=== PATIENT | female | born 1955 | race American Indian/Alaskan Native ===

== ENCOUNTER 2022-02-01 20:29 | Inpatient (IN) | payer MEDICARE ==
[2022-02-01] MEDS ORDERED: ALBUTEROL 2.5 MG/3 ML NEBU IH ONE (20:45)
[2022-02-01] MEDS ORDERED: IPRATROPIUM 0.02% NEBU 2.5 ML IH ONE (20:45)
--- NOTE | 2022-02-01 21:10 | XRay Report ---
CHEST 1 VIEW 02/01/2022 8:50 PM INDICATION / CLINICAL INFORMATION: Dyspnea. COMPARISON: 08/23/12 FINDINGS: SUPPORT DEVICES: None. HEART / MEDIASTINUM: Heart is moderately enlarged but unchanged. LUNGS / PLEURA: Moderate airspace disease in the right middle to lower lung with patchy airspace dise ase in the left lung base. No significant pleural effusion. No pneumothorax. ADDITIONAL FINDINGS: No significant additional findings. IMPRESSION: 1. Bilateral pulmonary opacities, right greater than left, which could represent pneumonia. Signer Name: Tim Garcia MD Signed: 02/01/2022 9:06 PM Workstation Name: [id number]
[2022-02-01] MEDS: cefTRIAXone/NS 1 GM/50 ML 1 GM/50 ML BAG IV ONE (21:29)
[2022-02-01 21:51] LABS: Creatine Kinase MB 2.7 ng/mL (0.0-4.0)
[2022-02-01 22:11] LABS: INR 0.96 (0.87-1.13)
[2022-02-01 22:15] LABS: Alanine Aminotransferase 18 units/L (7-56); Albumin 3.8 g/dL (3.9-5); BUN/Creatinine Ratio 10; Blood Urea Nitrogen 10 mg/dL (7-17); Hemolysis Index 14
[2022-02-01 22:18] LABS: Basophils # (Auto) 0.1 K/mm3 (0.0-0.1); Basophils % (Auto) 0.6 % (0.0-1.8); Eosinophils % (Auto) 0.3 % (0.0-4.3); Hematocrit 46.1 % (30.3-42.9); Hemoglobin 15.1 gm/dl (10.1-14.3); Lymphocytes # (Auto) 0.9 K/mm3 (1.2-5.4); Lymphocytes % (Auto) 8.2 % (13.4-35.0); Mean Corpuscular HGB Conc 33 % (30-34); Mean Corpuscular Volume 92 fl (79-97); Monocytes # (Auto) 0.4 K/mm3 (0.0-0.8); Monocytes % (Auto) 3.5 % (0.0-7.3); Platelet Count 302 K/mm3 (140-440); Red Blood Count 5.03 M/mm3 (3.65-5.03); Red Cell Distribution Width 13.7 % (13.2-15.2)
[2022-02-01 22:25] LABS: ABG HCO3 22.4 mmol/L (20.0-26.0); ABG Methemoglobin 0.7 % (0.0-1.5); ABG Oxygen Saturation 93.4 % (95.0-99.0); ABG PCO2 37.1 mm Hg; ABG PH 7.398 pH Units (7.350-7.450); ABG PO2 63.5 mm Hg (80.0-90.0)
[2022-02-01] MEDS: FUROSEMIDE 40 MG/4 ML INJ IV ONE (22:43)
[2022-02-01] MEDS: INSULIN REGULAR, HUMAN 100 UNITS/1 ML IV ONE (23:23)
--- NOTE | 2022-02-01 23:36 | Emergency Department Report ---
ED Shortness of Breath HPI - General Chief Complaint: Dyspnea/Respdistress Stated Complaint: SHORTNESS OF BREATH Time Seen by Provider: 02/01/22 20:45 Source: EMS Mode of arrival: Stretcher Limitations: No Limitations - History of Present Illness Initial Comments: SOB x1-2 hours, EMS gave 125mg of solu-medrol enroute pt is HTN diabetic started having sob TODAY , REMOTE HISTORY OF SMOKIING , NO CHF OR COPD, HAD HER 2 COVID SHOTS AND AWITING HE BOOSTER IN FEBRUARY Complaint: shortness of breath -: hour(s) Pain Scale: 0 Improves With: oxygen Worsens With: nothing - Related Data Home Oxygen Therapy: Yes Allergies Allergy/AdvReac Type Severity Reaction Status Date / Time Penicillins Allergy Hives Verified 02/01/22 21:13 ED Review of Systems ROS: Stated complaint: SHORTNESS OF BREATH Other details as noted in HPI Constitutional: denies: chills, fever Eyes: denies: eye pain, eye discharge, vision change ENT: denies: ear pain, throat pain Respiratory: denies: cough, shortness of breath, wheezing Cardiovascular: denies: chest pain, palpitations Endocrine: no symptoms reported Gastrointestinal: denies: abdominal pain, nausea, diarrhea Genitourinary: denies: urgency, dysuria, discharge Musculoskeletal: denies: back pain, joint swelling, arthralgia Skin: denies: rash, lesions Neurological: denies: headache, weakness, paresthesias Psychiatric: denies: anxiety, depression Hematological/Lymphatic: denies: easy bleeding, easy bruising ED Past Medical Hx - Past Medical History Previous Medical History?: No Hx Hypertension: Yes Hx Diabetes: Yes ED Physical Exam - General Limitations: No Limitations General appearance: alert, in distress - Head Head exam: Present: atraumatic, normocephalic - Eye Eye exam: Present: normal appearance - ENT ENT exam: Present: mucous membranes moist - Neck Neck exam: Present: normal inspection - Respiratory Respiratory exam: Present: rales, rhonchi. Absent: respiratory distress - Cardiovascular Cardiovascular Exam: Present: normal rhythm, tachycardia. Absent: systolic murmur, diastolic murmur, rubs, gallop - GI/Abdominal GI/Abdominal exam: Present: soft, normal bowel sounds - Extremities Exam Extremities exam: Present: normal inspection - Back Exam Back exam: Present: normal inspection - Neurological Exam Neurological exam: Present: alert, oriented X3 - Psychiatric Psychiatric exam: Present: normal affect, normal mood - Skin Skin exam: Present: warm, dry, intact, normal color. Absent: rash ED Course Vital Signs 02/01/22 02/01/22 21:25 21:42 Temperature 98.9 F Pulse Rate 135 H Pulse Rate [ 137 H Bilateral] Respiratory 25 H Rate Respiratory 30 H Rate [Bilateral ] Blood Pressure 112/83 [Left] O2 Sat by Pulse 100 Oximetry ED Medical Decision Making - Lab Data Result diagrams: 02/01/22 21:22 02/01/22 21:22 - EKG Data -: EKG Interpreted by Me EKG shows normal: sinus rhythm Rate: tachycardia - Radiology Data Radiology results: report reviewed, image reviewed - Medical Decision Making PLACEDON FACE MASK, RT GIVEN STERIODS , WORK UP SHWOD ELEVATED LACTIC AND BNP, ABX CULTURES LACTIC ACID DONE , PASSIX GIVEN , WILL GET cta TO RULE OUT PTE Critical care attestation.: If time is entered above; I have spent that time in minutes in the direct care of this critically ill patient, excluding procedure time. ED Disposition Clinical Impression: SOB (shortness of breath), CHF (congestive heart failure), Pneumonia Disposition: ADMITTED INPATIENT Is pt being admited?: Yes Does the pt Need Aspirin: No Condition: Fair Instructions: Bacterial Pneumonia (ED) Referrals: PRIMARY CARE, [Primary Care Provider] - 3-5 Days
[2022-02-01] MEDS ORDERED: MORPHINE 2 MG/1 ML INJ IV PRN (23:39)
[2022-02-01] MEDS ORDERED: ONDANSETRON 4 MG/2 ML INJ IV PRN (23:39)
[2022-02-01] MEDS ORDERED: DEXTROSE 50% IN WATER (25GM) 50 ML SYRINGE IV PRN (23:39)
[2022-02-01] MEDS ORDERED: MORPHINE 4 MG/1 ML INJ IV PRN (23:39)
[2022-02-01] MEDS ORDERED: MAGNESIUM HYDROXIDE (MOM) ORAL LIQD UDC PO PRN (23:39)
--- NOTE | 2022-02-01 23:52 | History and Physical Report ---
History of Present Illness Date of examination: 02/01/22 Date of admission: 02/01/2022 Chief complaint: Difficulty Breathing History of present illness: 66-year-old female with known history of hypertension and diabetes mellitus presenting to the emergency room today complaining of shortness of breath and difficulty breathing. Symptoms were said to have started a few hours prior to reporting to the emergency room. She denies any fever or chills, no chest pain, no nausea vomiting and no abdominal pain. Patient denies any sick contacts and no recent travel. Denies any contact with anyone with COVID-19. Patient has just had 2 doses of the COVID-19 vaccine. She awaits the booster dose. Upon arrival in the emergency room patient was quite tachypneic and had increased work of breathing. Oxygen saturation upon arrival was 89% on room air. She was subsequently placed on nonrebreather with significant improvement in oxygen saturation. Work-up in the emergency room today, significant findings on the labs were lactic acid of 3.7, glucose of 542, BNP of 1962. T angiogram of the chest shows possible pulmonary edema versus infection. No evidence of pulmonary embolism. Chest x-ray shows bilateral pulmonary opacities right greater than left which could represent pneumonia. Past History Past Medical History: diabetes, hypertension Past Surgical History: No surgical history Social history: no significant social history Family history: no significant family history Medications and Allergies Allergies Allergy/AdvReac Type Severity Reaction Status Date / Time Penicillins Allergy Hives Verified 02/01/22 21:13 Active Meds: Active Medications Acetaminophen (Acetaminophen 325 Mg Tab) 650 mg PO Q4H PRN PRN Reason: Pain MILD(1-3)/Fever >100.5/OSEGUERA Azithromycin (Azithromycin 250 Mg Tab) 500 mg PO QDAY MICHELINE; Protocol Dextrose (Dextrose 50% In Water (25gm) 50 Ml Syringe) 50 ml IV Q30MIN PRN; Protocol PRN Reason: Hypoglycemia Dextrose (Dextrose 50% In Water (25gm) 50 Ml Syringe) 50 ml IV Q30MIN PRN; Protocol PRN Reason: Hypoglycemia Furosemide (Furosemide 40 Mg/4 Ml Inj) 40 mg IV BID@0600,1800 MICHELINE Ceftriaxone Sodium (Rocephin/Ns 2 Gm/100 Ml) 2 gm in 100 mls @ 200 mls/hr IV Q24H MICHELINE; Protocol Insulin Human Lispro (Insulin Lispro 100 Unit/Ml) 0 unit SUB-Q ACHS MICHELINE; Protocol Magnesium Hydroxide (Magnesium Hydroxide (Mom) Oral Liqd Udc) 30 ml PO Q4H PRN PRN Reason: Constipation Morphine Sulfate (Morphine 2 Mg/1 Ml Inj) 2 mg IV Q4H PRN PRN Reason: Pain, Moderate (4-6) Morphine Sulfate (Morphine 4 Mg/1 Ml Inj) 4 mg IV Q4H PRN PRN Reason: Pain , Severe (7-10) Ondansetron HCl (Ondansetron 4 Mg/2 Ml Inj) 4 mg IV Q8H PRN PRN Reason: Nausea And Vomiting Sodium Chloride (Sodium Chloride 0.9% 10 Ml Flush Syringe) 10 ml IV BID MICHELINE Sodium Chloride (Sodium Chloride 0.9% 10 Ml Flush Syringe) 10 ml IV PRN PRN PRN Reason: LINE FLUSH Review of Systems Constitutional: no fever, no chills Ears, nose, mouth and throat: no nasal congestion, no sore throat Cardiovascular: no chest pain, no palpitations Respiratory: shortness of breath, no cough Gastrointestinal: no abdominal pain, no nausea, no vomiting, no diarrhea Genitourinary Female: no pelvic pain, no flank pain, no dysuria Musculoskeletal: no neck pain, no low back pain Integumentary: no rash, no pruritis Neurological: no headaches, no confusion Psychiatric: no anxiety, no depression Endocrine: no polyphagia, no polydipsia, no polyuria, no nocturia Exam - Constitutional Vitals: Temp Pulse Resp BP Pulse Ox 98.9 F 135 H 25 H 112/83 100 02/01/22 21:42 02/01/22 21:42 02/01/22 21:42 02/01/22 21:42 02/01/22 21:42 General appearance: Present: no acute distress, well-nourished - EENT Eyes: Present: PERRL, EOM intact, scleral icterus ENT: hearing intact, clear oral mucosa, dentition normal - Neck Neck: Present: supple, normal ROM - Respiratory Respiratory effort: normal Respiratory: bilateral: CTA - Cardiovascular Rhythm: regular Heart Sounds: Present: S1 & S2. Absent: gallop, systolic murmur, diastolic murmur, rub, click - Extremities Extremities: no ischemia, pulses intact, pulses symmetrical, No edema, normal temperature, normal color, Full ROM Peripheral Pulses: within normal limits - Abdominal General gastrointestinal: Present: soft, non-tender, normal bowel sounds. Absent: mass - Integumentary Integumentary: Present: clear, warm, dry, normal turgor. Absent: rash - Musculoskeletal Musculoskeletal: strength equal bilaterally - Psychiatric Psychiatric: appropriate mood/affect, intact judgment & insight, memory intact, cooperative - Neurologic Neurologic: CNII-XII intact, no focal deficits, moves all extremities HEART Score - HEART Score Troponin: Troponin T 0.025 ng/mL (0.00-0.029) 02/01/22 21: Results - Labs CBC & Chem 7: 02/01/22 21:22 02/01/22 21: Labs: Abnormal lab results 02/01/22 02/01/22 02/01/22 Range/Units 21: 21: 21: Hgb 15.1 H (10.1-14.3) gm/dl Hct 46.1 H (30.3-42.9) % Lymph % (Auto) 8.2 L (13.4-35.0) % Lymph # (Auto) 0.9 L (1.2-5.4) K/mm3 Seg Neutrophils % 87.4 H (40.0-70.0) % Seg Neutrophils # 9.4 H (1.8-7.7) K/mm3 ABG pO2 (80.0-90.0) mm Hg ABG O2 Saturation (95.0-99.0) % Oxyhemoglobin (95.0-99.0) % Sodium 135 L (137-145) mmol/L Chloride 96.4 L (98-107) mmol/L Carbon Dioxide 21 L (22-30) mmol/L Glucose 502 H* (65-100) mg/dL Lactic Acid (0.7-2.0) mmol/L NT-Pro-B Natriuret Pep 1962 H (0-900) pg/mL Albumin 3.8 L (3.9-5) g/dL Lipase 70 H (13-60) units/L 02/01/22 02/01/22 Range/Units 21:22 22:15 Hgb (10.1-14.3) gm/dl Hct (30.3-42.9) % Lymph % (Auto) (13.4-35.0) % Lymph # (Auto) (1.2-5.4) K/mm3 Seg Neutrophils % (40.0-70.0) % Seg Neutrophils # (1.8-7.7) K/mm3 ABG pO2 63.5 L (80.0-90.0) mm Hg ABG O2 Saturation 93.4 L (95.0-99.0) % Oxyhemoglobin 91.8 L (95.0-99.0) % Sodium (137-145) mmol/L Chloride (98-107) mmol/L Carbon Dioxide (22-30) mmol/L Glucose (65-100) mg/dL Lactic Acid 3.70 H* (0.7-2.0) mmol/L NT-Pro-B Natriuret Pep (0-900) pg/mL Albumin (3.9-5) g/dL Lipase (13-60) units/L Assessment and Plan - Patient Problems (1) Pneumonia Current Visit: Yes Status: Acute Plan to address problem: Patient started on empiric IV antibiotics. We await culture results. (2) CHF (congestive heart failure) Current Visit: Yes Status: Acute Plan to address problem: Patient placed on diuretics. We will monitor input and output and also monitor daily weight. (3) Hypertension Current Visit: Yes Status: Acute Plan to address problem: We will resume routine home medications and monitor vital signs closely. (4) Diabetes mellitus Current Visit: Yes Status: Acute Plan to address problem: Patient placed on sliding scale insulin. We will monitor Accu-Cheks. (5) DVT prophylaxis Current Visit: Yes Status: Acute Plan to address problem: We will place on subcutaneous heparin. (6) Full code status Current Visit: Yes Status: Acute Plan to address problem: Patient is full code.
[2022-02-02] MEDS ORDERED: DEXTROSE 10% *Hypoglycemia IV PRN (00:01)
--- NOTE | 2022-02-02 00:26 | Cat Scan Report ---
CTA CHEST WITH CONTRAST INDICATION / CLINICAL INFORMATION: Shortness of breath. TECHNIQUE: Axial CT images were obtained through the chest after injection of 100 cc Omnipaque 350 IV contrast. 3 plane MIP and/or 3D reconstructions were produced. All CT scans at this location are per formed using CT dose reduction for ALARA by means of automated exposure control. COMPARISON: Chest x-ray 02/01/2022 FINDINGS: VASCULAR FINDINGS: PULMONARY ARTERY: Pulmonary artery is normal in size. No filling defects are present compatible with pulmonary artery embolus.. THORACIC AORTA: Mild atherosclerotic calcification without acute abnormality. CORONARY ARTERY CALCIFICATION: Present -- Mild. NONVASCULAR FINDINGS: LOWER NECK: The thyroid is enlarged with retrosternal extension of thyroid nodule on the left. Appear ance may reflect multinodular goiter. HEART: No significant abnormality. MEDIASTINUM / ZION: No significant abnormality. ESOPHAGUS: No significant abnormality. LYMPH NODES: No adenopathy within the axilla, mediastinum, or zion. LUNGS: Bilateral regions of confluent air space attenuation demonstrated within the upper lobes and l ower lobes. Additional areas of groundglass attenuation are noted within the upper lobes. No endobron chial lesions are present. Thickening of interlobular septal lines is present within the lower lobes. PLEURA: No pleural effusion. No pneumothorax. THORACIC SOFT TISSUES: No significant abnormality of the chest wall or upper thoracic musculature. BONES: No significant skeletal abnormalities. ADDITIONAL CHEST FINDINGS: None. UPPER ABDOMEN: Hypoattenuating lesion medial aspect mid left kidney may reflect cyst. No obvious jim d masses of the kidneys. Minimal cholelithiasis. Colonic diverticulosis. IMPRESSION: 1. No CT evidence for pulmonary embolism. 2. Differential considerations for the appearance of the lungs could include pulmonary edema with int erstitial and alveolar components, aspiration, and infection. Signer Name: Orestes Ritchie II, MD Signed: 02/02/2022 12:21 AM Workstation Name: [id number]
[2022-02-02] MEDS ORDERED: MORPHINE 4 MG/1 ML INJ IV PRN (01:43)
[2022-02-02] MEDS ORDERED: MORPHINE 2 MG/1 ML INJ IV PRN (01:43)
[2022-02-02] MEDS ORDERED: ACETAMINOPHEN 325 MG TAB PO PRN (01:43)
[2022-02-02 05:31] LABS: Hematocrit 42.8 % (30.3-42.9); Hemoglobin 14.3 gm/dl (10.1-14.3); Mean Corpuscular HGB Conc 34 % (30-34); Mean Corpuscular Volume 91 fl (79-97); Platelet Count 286 K/mm3 (140-440); Red Blood Count 4.71 M/mm3 (3.65-5.03); Red Cell Distribution Width 13.7 % (13.2-15.2)
[2022-02-02 05:50] LABS: BUN/Creatinine Ratio 10; Blood Urea Nitrogen 11 mg/dL (7-17); Calcium 9.3 mg/dL (8.4-10.2); Hemolysis Index 572
[2022-02-02] MEDS: HEPARIN 5,000 UNIT/1 ML VIAL SUB-Q SCH ×3 (06:26→21:18)
[2022-02-02] MEDS: FUROSEMIDE 40 MG/4 ML INJ IV SCH ×2 (06:28→19:30)
[2022-02-02 06:57] LABS: Basophils % (Manual) 0 % (0.0-1.8); Eosinophils % (Manual) 0 % (0.0-4.3); Total Cells Counted 100
[2022-02-02 06:58] LABS: RBC Morphology Normal
[2022-02-02] MEDS ORDERED: INSULIN LISPRO 100 UNIT/ML SUB-Q SCH (07:30)
[2022-02-02 08:35] LABS: Alanine Aminotransferase 16 units/L (7-56); Albumin 3.8 g/dL (3.9-5); BUN/Creatinine Ratio 12; Blood Urea Nitrogen 12 mg/dL (7-17); Calcium 9.4 mg/dL (8.4-10.2); Hemolysis Index 20
[2022-02-02] MEDS: AZITHROMYCIN 250 MG TAB PO SCH (11:09)
[2022-02-02] MEDS: cefTRIAXone/NS 2 GM/100 ML 2 GM/100 ML BAG IV SCH (11:10)
[2022-02-02] MEDS: INSULIN NPH, HUMAN 100 UNIT/1 ML SUB-Q SCH ×2 (13:00→19:01)
[2022-02-02] MEDS: INSULIN REGULAR, HUMAN 100 UNITS/1 ML SUB-Q SCH ×3 (13:05→21:20)
--- NOTE | 2022-02-02 18:08 | Progress Note ---
Assessment and Plan 66-year-old female with known history of hypertension and diabetes mellitus presenting to the emergency room complaining of shortness of breath and difficulty breathing. Upon arrival in the emergency room patient was quite tachypneic and had increased work of breathing. Oxygen saturation upon arrival was 89% on room air. She was subsequently placed on nonrebreather with significant improvement in oxygen saturation. Work-up in the emergency room showed lactic acid of 3.7, glucose of 542, BNP of 1962. CT angiogram of the chest shows possible pulmonary edema versus infection. No evidence of pulmonary embolism. Chest x-ray shows bilateral pulmonary opacities right greater than left which could represent pneumonia. Patient was admitted for further evaluation and management. 02/02: Continue IV diuresis, IV antibiotics. Continue to adjust insulin regimen for better glycemic control. 2D echo ordered and pending. Continue to follow clinically, ordered for a.m. labs Assessment and plan: --Bilateral pneumonia Current Visit: Yes Status: Acute Plan to address problem: Patient started on empiric IV antibiotics. We await culture results. --New onset CHF (congestive heart failure) Current Visit: Yes Status: Acute Plan to address problem: Patient placed on diuretics. We will monitor input and output and also monitor daily weight. -- Hypertension Current Visit: Yes Status: Acute Plan to address problem: We will resume routine home medications and monitor vital signs closely. --Diabetes mellitus uncontrolled Current Visit: Yes Status: Acute Plan to address problem: Patient placed on sliding scale insulin. We will monitor Accu-Cheks. --Morbid obesity, recommended balanced diet, adherence with diabetic regimen, increase physical activity -- DVT prophylaxis Current Visit: Yes Status: Acute Plan to address problem: We will place on subcutaneous heparin. -- Full code status Current Visit: Yes Status: Acute Plan to address problem: Patient is full code. Subjective Date of service: 02/02/22 Interval history: Patient seen and examined. Medical records and medication list reviewed. No acute event overnight noted by the RN. Patient complains of difficulty breathing and minimal exertion. Patient is tolerating diet. Discussed plan of care at bedside with patient. Objective - Exam Narrative Exam: General appearance: Present: no acute distress, well-nourished - EENT Eyes: Present: PERRL, EOM intact, scleral icterus ENT: hearing intact, clear oral mucosa, dentition normal - Neck Neck: Present: supple, normal ROM - Respiratory Respiratory effort: normal Respiratory: bilateral: Positive crackles - Cardiovascular Rhythm: regular Heart Sounds: Present: S1 & S2. Absent: gallop, systolic murmur, diastolic murmur, rub, click - Extremities Extremities: no ischemia, pulses intact, pulses symmetrical, + edema, normal temperature, normal color, Full ROM Peripheral Pulses: within normal limits - Abdominal General gastrointestinal: Present: soft, non-tender, normal bowel sounds. Absent: mass - Integumentary Integumentary: Present: clear, warm, dry, normal turgor. Absent: rash - Musculoskeletal Musculoskeletal: strength equal bilaterally - Psychiatric Psychiatric: appropriate mood/affect, intact judgment & insight, memory intact, cooperative - Neurologic Neurologic: CNII-XII intact, no focal deficits, moves all extremities - Constitutional Vitals: Vital Signs - 12hr 02/02/22 02/02/22 02/02/22 07:30 09:27 11:29 Temperature 97.0 F L 98.9 F Pulse Rate 111 H 111 H Respiratory 20 20 Rate Blood Pressure 152/97 Blood Pressure 143/95 [Left] O2 Sat by Pulse 98 99 98 Oximetry 02/02/22 02/02/22 16:00 16:18 Temperature 98.9 F Pulse Rate 120 H Respiratory 20 Rate Blood Pressure Blood Pressure 156/90 [Left] O2 Sat by Pulse 97 99 Oximetry - Labs CBC & Chem 7: 02/06/22 04:46 02/06/22 04:46 Labs: Abnormal lab results 02/01/22 02/01/22 02/01/22 Range/Units 21:22 21:22 21:22 Hgb 15.1 H (10.1-14.3) gm/dl Hct 46.1 H (30.3-42.9) % Lymph % (Auto) 8.2 L (13.4-35.0) % Lymph # (Auto) 0.9 L (1.2-5.4) K/mm3 Seg Neutrophils % 87.4 H (40.0-70.0) % Seg Neuts % (Manual) (40.0-70.0) % Lymphocytes % (Manual) (13.4-35.0) % Seg Neutrophils # 9.4 H (1.8-7.7) K/mm3 Seg Neutrophils # Man (1.8-7.7) K/mm3 Lymphocytes # (Manual) (1.2-5.4) K/mm3 ABG pO2 (80.0-90.0) mm Hg ABG O2 Saturation (95.0-99.0) % Oxyhemoglobin (95.0-99.0) % Sodium 135 L (137-145) mmol/L Chloride 96.4 L (98-107) mmol/L Carbon Dioxide 21 L (22-30) mmol/L Glucose 502 H* (65-100) mg/dL POC Glucose (70-105) mg/dL Lactic Acid (0.7-2.0) mmol/L NT-Pro-B Natriuret Pep 1962 H (0-900) pg/mL Albumin 3.8 L (3.9-5) g/dL Lipase 70 H (13-60) units/L 02/01/22 02/01/22 02/02/22 Range/Units 21:22 22:15 04:58 Hgb (10.1-14.3) gm/dl Hct (30.3-42.9) % Lymph % (Auto) (13.4-35.0) % Lymph # (Auto) (1.2-5.4) K/mm3 Seg Neutrophils % (40.0-70.0) % Seg Neuts % (Manual) 96.0 H (40.0-70.0) % Lymphocytes % (Manual) 3.0 L (13.4-35.0) % Seg Neutrophils # (1.8-7.7) K/mm3 Seg Neutrophils # Man 8.0 H (1.8-7.7) K/mm3 Lymphocytes # (Manual) 0.2 L (1.2-5.4) K/mm3 ABG pO2 63.5 L (80.0-90.0) mm Hg ABG O2 Saturation 93.4 L (95.0-99.0) % Oxyhemoglobin 91.8 L (95.0-99.0) % Sodium (137-145) mmol/L Chloride (98-107) mmol/L Carbon Dioxide (22-30) mmol/L Glucose (65-100) mg/dL POC Glucose (70-105) mg/dL Lactic Acid 3.70 H* (0.7-2.0) mmol/L NT-Pro-B Natriuret Pep (0-900) pg/mL Albumin (3.9-5) g/dL Lipase (13-60) units/L 02/02/22 02/02/22 02/02/22 Range/Units 04:58 07:31 07:52 Hgb (10.1-14.3) gm/dl Hct (30.3-42.9) % Lymph % (Auto) (13.4-35.0) % Lymph # (Auto) (1.2-5.4) K/mm3 Seg Neutrophils % (40.0-70.0) % Seg Neuts % (Manual) (40.0-70.0) % Lymphocytes % (Manual) (13.4-35.0) % Seg Neutrophils # (1.8-7.7) K/mm3 Seg Neutrophils # Man (1.8-7.7) K/mm3 Lymphocytes # (Manual) (1.2-5.4) K/mm3 ABG pO2 (80.0-90.0) mm Hg ABG O2 Saturation (95.0-99.0) % Oxyhemoglobin (95.0-99.0) % Sodium 134 L 135 L (137-145) mmol/L Chloride 96.9 L (98-107) mmol/L Carbon Dioxide 20 L (22-30) mmol/L Glucose 498 H 450 H (65-100) mg/dL POC Glucose 408 H (70-105) mg/dL Lactic Acid (0.7-2.0) mmol/L NT-Pro-B Natriuret Pep (0-900) pg/mL Albumin 3.8 L (3.9-5) g/dL Lipase (13-60) units/L 02/02/22 02/02/22 Range/Units 11:14 16:04 Hgb (10.1-14.3) gm/dl Hct (30.3-42.9) % Lymph % (Auto) (13.4-35.0) % Lymph # (Auto) (1.2-5.4) K/mm3 Seg Neutrophils % (40.0-70.0) % Seg Neuts % (Manual) (40.0-70.0) % Lymphocytes % (Manual) (13.4-35.0) % Seg Neutrophils # (1.8-7.7) K/mm3 Seg Neutrophils # Man (1.8-7.7) K/mm3 Lymphocytes # (Manual) (1.2-5.4) K/mm3 ABG pO2 (80.0-90.0) mm Hg ABG O2 Saturation (95.0-99.0) % Oxyhemoglobin (95.0-99.0) % Sodium (137-145) mmol/L Chloride (98-107) mmol/L Carbon Dioxide (22-30) mmol/L Glucose (65-100) mg/dL POC Glucose 321 H 292 H (70-105) mg/dL Lactic Acid (0.7-2.0) mmol/L NT-Pro-B Natriuret Pep (0-900) pg/mL Albumin (3.9-5) g/dL Lipase (13-60) units/L HEART Score - HEART Score Troponin: Troponin T 0.025 ng/mL (0.00-0.029) 02/01/22 21:22
[2022-02-03] MEDS: HEPARIN 5,000 UNIT/1 ML VIAL SUB-Q SCH ×3 (05:34→22:48)
[2022-02-03] MEDS: FUROSEMIDE 40 MG/4 ML INJ IV SCH ×2 (07:44→17:11)
[2022-02-03] MEDS: FUROSEMIDE 40 MG/4 ML INJ IV ONE (07:45)
[2022-02-03] MEDS: INSULIN REGULAR, HUMAN 100 UNITS/1 ML IV ONE (07:45)
[2022-02-03] MEDS: cefTRIAXone/NS 1 GM/50 ML 1 GM/50 ML BAG IV ONE (07:45)
[2022-02-03] MEDS: INSULIN NPH, HUMAN 100 UNIT/1 ML SUB-Q SCH ×3 (09:01→17:10)
[2022-02-03] MEDS: INSULIN REGULAR, HUMAN 100 UNITS/1 ML SUB-Q SCH ×4 (09:01→22:49)
[2022-02-03] MEDS: cefTRIAXone/NS 2 GM/100 ML 2 GM/100 ML BAG IV SCH (09:02)
[2022-02-03] MEDS: AZITHROMYCIN 250 MG TAB PO SCH (09:02)
[2022-02-03] MEDS ORDERED: GLIPIZIDE 2.5 MG PO SCH (10:00)
[2022-02-03] MEDS: amLODIPine 5 MG TAB PO SCH (12:35)
[2022-02-03] MEDS: METOPROLOL SUCCINATE XL 25 MG TAB PO SCH (12:35)
--- NOTE | 2022-02-03 16:36 | Progress Note ---
Assessment and Plan 66-year-old female with known history of hypertension and diabetes mellitus presenting to the emergency room complaining of shortness of breath and difficulty breathing. Upon arrival in the emergency room patient was quite tachypneic and had increased work of breathing. Oxygen saturation upon arrival was 89% on room air. She was subsequently placed on nonrebreather with significant improvement in oxygen saturation. Work-up in the emergency room showed lactic acid of 3.7, glucose of 542, BNP of 1962. CT angiogram of the chest shows possible pulmonary edema versus infection. No evidence of pulmonary embolism. Chest x-ray shows bilateral pulmonary opacities right greater than left which could represent pneumonia. Patient was admitted for further evaluation and management. 02/02: Continue IV diuresis, IV antibiotics. Continue to adjust insulin regimen for better glycemic control. 2D echo ordered and pending. Continue to follow clinically, ordered for a.m. labs 02/03: 2D echo showed EF 15 to 20%. Continue IV Lasix, consult cardiology monitor ins and outs and daily weight. Continue to adjust insulin doses for better gl ycemic control Assessment and plan: --Bilateral pneumonia Current Visit: Yes Status: Acute Plan to address problem: Patient started on empiric IV antibiotics. We await culture results. --New onset CHF (congestive heart failure) Current Visit: Yes Status: Acute Plan to address problem: Patient placed on diuretics. We will monitor input and output and also monitor daily weight. -- Hypertension Current Visit: Yes Status: Acute Plan to address problem: We will resume routine home medications and monitor vital signs closely. --Diabetes mellitus uncontrolled Current Visit: Yes Status: Acute Plan to address problem: Patient placed on sliding scale insulin. We will monitor Accu-Cheks. --Morbid obesity, recommended balanced diet, adherence with diabetic regimen, increase physical activity -- DVT prophylaxis Current Visit: Yes Status: Acute Plan to address problem: We will place on subcutaneous heparin. -- Full code status Current Visit: Yes Status: Acute Plan to address problem: Patient is full code. Subjective Date of service: 02/03/22 Interval history: Patient seen and examined. Medical records and medication list reviewed. No acute event overnight noted by the RN. Patient complains of difficulty breathing and minimal exertion. Patient is tolerating diet. Discussed plan of care at bedside with patient. Objective - Exam Narrative Exam: General appearance: Present: no acute distress, well-nourished - EENT Eyes: Present: PERRL, EOM intact, scleral icterus ENT: hearing intact, clear oral mucosa, dentition normal - Neck Neck: Present: supple, normal ROM - Respiratory Respiratory effort: normal Respiratory: bilateral: Positive crackles - Cardiovascular Rhythm: regular Heart Sounds: Present: S1 & S2. Absent: gallop, systolic murmur, diastolic murmur, rub, click - Extremities Extremities: no ischemia, pulses intact, pulses symmetrical, + edema, normal t emperature, normal color, Full ROM Peripheral Pulses: within normal limits - Abdominal General gastrointestinal: Present: soft, non-tender, normal bowel sounds. Absent: mass - Integumentary Integumentary: Present: clear, warm, dry, normal turgor. Absent: rash - Musculoskeletal Musculoskeletal: strength equal bilaterally - Psychiatric Psychiatric: appropriate mood/affect, intact judgment & insight, memory intact, cooperative - Neurologic Neurologic: CNII-XII intact, no focal deficits, moves all extremities - Constitutional Vitals: Vital Signs - 12hr 02/03/22 02/03/22 02/03/22 07:25 11:36 14:50 Temperature 97.5 F L 98.8 F Pulse Rate 115 H 119 H Pulse Rate [ From Monitor] Respiratory 18 18 Rate Blood Pressure 142/84 146/97 O2 Sat by Pulse 97 98 98 Oximetry 02/03/22 15:00 Temperature Pulse Rate Pulse Rate [ 123 H From Monitor] Respiratory 18 Rate Blood Pressure O2 Sat by Pulse 98 Oximetry - Labs CBC & Chem 7: 02/06/22 04:46 02/06/22 04:46 Labs: Abnormal lab results 02/02/22 02/02/22 02/02/22 Range/Units 04:58 16:04 20:35 POC Glucose 292 H 281 H (70-105) mg/dL Hemoglobin A1c 12.4 H (4-6) % 02/03/22 02/03/22 Range/Units 07:21 11:34 POC Glucose 153 H 238 H (70-105) mg/dL Hemoglobin A1c (4-6) % HEART Score - HEART Score Troponin: Troponin T 0.025 ng/mL (0.00-0.029) 02/01/22 21:22
[2022-02-03] MEDS: ASPIRIN EC 81 MG TAB PO SCH (17:11)
[2022-02-03] MEDS ORDERED: NON-FORMULARY EACH (Atorvastatin [Lipitor] 80 MG Tablet) PO SCH (22:00)
[2022-02-03] MEDS: carvediloL 3.125 MG TAB PO SCH (22:50)
[2022-02-04 05:32] LABS: Basophils # (Auto) 0.1 K/mm3 (0.0-0.1); Basophils % (Auto) 0.9 % (0.0-1.8); Eosinophils # (Auto) 0.1 K/mm3 (0.0-0.4); Eosinophils % (Auto) 0.9 % (0.0-4.3); Hematocrit 41.8 % (30.3-42.9); Hemoglobin 13.7 gm/dl (10.1-14.3); Lymphocytes # (Auto) 2.9 K/mm3 (1.2-5.4); Lymphocytes % (Auto) 29.1 % (13.4-35.0); Mean Corpuscular HGB Conc 33 % (30-34); Mean Corpuscular Volume 92 fl (79-97); Monocytes # (Auto) 0.9 K/mm3 (0.0-0.8); Monocytes % (Auto) 8.5 % (0.0-7.3); Platelet Count 293 K/mm3 (140-440); Red Blood Count 4.55 M/mm3 (3.65-5.03); Red Cell Distribution Width 14.2 % (13.2-15.2)
[2022-02-04 05:50] LABS: BUN/Creatinine Ratio 21; Blood Urea Nitrogen 21 mg/dL (7-17); Calcium 9.2 mg/dL (8.4-10.2); Hemolysis Index 11
[2022-02-04] MEDS: FUROSEMIDE 40 MG/4 ML INJ IV SCH ×2 (06:06→17:12)
[2022-02-04] MEDS: HEPARIN 5,000 UNIT/1 ML VIAL SUB-Q SCH ×3 (06:06→21:15)
[2022-02-04] MEDS: cefTRIAXone/NS 2 GM/100 ML 2 GM/100 ML BAG IV SCH (09:13)
[2022-02-04] MEDS: METOPROLOL SUCCINATE XL 25 MG TAB PO SCH (09:14)
[2022-02-04] MEDS: ASPIRIN EC 81 MG TAB PO SCH (09:17)
[2022-02-04] MEDS: AZITHROMYCIN 250 MG TAB PO SCH (09:17)
[2022-02-04] MEDS: amLODIPine 5 MG TAB PO SCH (09:18)
[2022-02-04] MEDS: INSULIN NPH, HUMAN 100 UNIT/1 ML SUB-Q SCH ×3 (09:18→17:13)
[2022-02-04] MEDS: carvediloL 3.125 MG TAB PO SCH ×2 (09:18→21:14)
[2022-02-04] MEDS: INSULIN REGULAR, HUMAN 100 UNITS/1 ML SUB-Q SCH ×4 (09:18→21:23)
--- NOTE | 2022-02-04 10:19 | Progress Note ---
Subjective Date of service: 02/04/22 Interval history: CONSULT DICTAED CHF Tx CONSIDER CATH SUNDAY Objective Vital Signs Temp Pulse Pulse Resp BP Pulse Ox 02/04/22 09:43 98 02/04/22 09:16 102 H 133/76 98 02/04/22 03:52 99.3 F 101 H 18 139/81 97 02/04/22 02:46 98 02/03/22 23:21 98.0 F 102 H 16 129/85 92 02/03/22 21:42 98 02/03/22 20:35 102 H 02/03/22 20:13 98.0 F 107 H 16 126/78 96 02/03/22 16:25 98.5 F 112 H 18 139/85 98 02/03/22 15:00 123 H 18 98 02/03/22 14:50 98 02/03/22 11:36 98.8 F 119 H 18 146/97 98 - Labs and Meds CBC 02/04/22 Range/Units 05:02 WBC 10.0 (4.5-11.0) K/mm3 RBC 4.55 (3.65-5.03) M/mm3 Hgb 13.7 (10.1-14.3) gm/dl Hct 41.8 (30.3-42.9) % Plt Count 293 (140-440) K/mm3 Lymph # (Auto) 2.9 (1.2-5.4) K/mm3 [place] # (Auto) 0.9 H (0.0-0.8) K/mm3 Eos # (Auto) 0.1 (0.0-0.4) K/mm3 Baso # (Auto) 0.1 (0.0-0.1) K/mm3 Comprehensive Metabolic Panel 02/04/22 Range/Units 05:02 Sodium 141 (137-145) mmol/L Potassium 3.4 L D (3.6-5.0) mmol/L Chloride 101.2 (98-107) mmol/L Carbon Dioxide 28 D (22-30) mmol/L BUN 21 H (7-17) mg/dL Creatinine 1.0 (0.6-1.2) mg/dL Glucose 97 (65-100) mg/dL Calcium 9.2 (8.4-10.2) mg/dL
[2022-02-04] MEDS ORDERED: POTASSIUM CHLORIDE ER 20 MEQ TAB PO ONE (11:00)
[2022-02-04] MEDS: LISINOPRIL 20 MG TAB PO SCH (11:50)
[2022-02-04] MEDS: VENLAFAXINE XR 75 MG CAP PO SCH (12:15)
[2022-02-04] MEDS ORDERED: INSULIN NPH, HUMAN 100 UNIT/1 ML SUB-Q SCH (13:00)
--- NOTE | 2022-02-04 14:26 | Progress Note ---
Assessment and Plan 66-year-old female with known history of hypertension and diabetes mellitus presenting to the emergency room complaining of shortness of breath and difficulty breathing. Upon arrival in the emergency room patient was quite tachypneic and had increased work of breathing. Oxygen saturation upon arrival was 89% on room air. She was subsequently placed on nonrebreather with significant improvement in oxygen saturation. Work-up in the emergency room showed lactic acid of 3.7, glucose of 542, BNP of 1962. CT angiogram of the chest shows possible pulmonary edema versus infection. No evidence of pulmonary embolism. Chest x-ray shows bilateral pulmonary opacities right greater than left which could represent pneumonia. Patient was admitted for further evaluation and management. 02/02: Continue IV diuresis, IV antibiotics. Continue to adjust insulin regimen for better glycemic control. 2D echo ordered and pending. Continue to follow clinically, ordered for a.m. labs 02/03: 2D echo showed EF 15 to 20%. Continue IV Lasix, consult cardiology monitor ins and outs and daily weight. Continue to adjust insulin doses for better gly cemic control 02/04: Cardiology following, continue diuresis. Patient symptomatically improving. Continue to monitor blood glucose QA [facility]. Cardiology plan for cardiac cath on Sunday. Assessment and plan: --Bilateral pneumonia Current Visit: Yes Status: Acute Plan to address problem: Patient started on empiric IV antibiotics. We await culture results. --New onset CHF (congestive heart failure) Current Visit: Yes Status: Acute Plan to address problem: Patient placed on diuretics. We will monitor input and output and also monitor daily weight. -- Hypertension Current Visit: Yes Status: Acute Plan to address problem: We will resume routine home medications and monitor vital signs closely. --Diabetes mellitus uncontrolled Current Visit: Yes Status: Acute Plan to address problem: Patient placed on sliding scale insulin. We will monitor Accu-Cheks. --Morbid obesity, recommended balanced diet, adherence with diabetic regimen, increase physical activity -- DVT prophylaxis Current Visit: Yes Status: Acute Plan to address problem: We will place on subcutaneous heparin. -- Full code status Current Visit: Yes Status: Acute Plan to address problem: Patient is full code. Subjective Date of service: 02/04/22 Interval history: Patient seen and examined. Medical records and medication list reviewed. No acute event overnight noted by the RN. Patient complains of difficulty breathing and minimal exertion. Patient is tolerating diet. Discussed plan of care at bedside with patient. Objective - Exam Narrative Exam: General appearance: Present: no acute distress, well-nourished - EENT Eyes: Present: PERRL, EOM intact, scleral icterus ENT: hearing intact, clear oral mucosa, dentition normal - Neck Neck: Present: supple, normal ROM - Respiratory Respiratory effort: normal Respiratory: bilateral: Positive crackles - Cardiovascular Rhythm: regular Heart Sounds: Present: S1 & S2. Absent: gallop, systolic murmur, diastolic murmur, rub, click - Extremities Extremities: no ischemia, pulses intact, pulses symmetrical, + edema, normal temperature, normal color, Full ROM Peripheral Pulses: within normal limits - Abdominal General gastrointestinal: Present: soft, non-tender, normal bowel sounds. Abse nt: mass - Integumentary Integumentary: Present: clear, warm, dry, normal turgor. Absent: rash - Musculoskeletal Musculoskeletal: strength equal bilaterally - Psychiatric Psychiatric: appropriate mood/affect, intact judgment & insight, memory intact, cooperative - Neurologic Neurologic: CNII-XII intact, no focal deficits, moves all extremities - Constitutional Vitals: Vital Signs - 12hr 02/04/22 02/04/22 02/04/22 02:46 03:52 07:30 Temperature 99.3 F Pulse Rate 101 H 105 H Pulse Rate [ From Monitor] Respiratory 18 Rate Blood Pressure 139/81 O2 Sat by Pulse 98 97 Oximetry 02/04/22 02/04/22 02/04/22 09:16 09:43 11:45 Temperature 98.7 F Pulse Rate 102 H 97 H Pulse Rate [ From Monitor] Respiratory 16 Rate Blood Pressure 133/76 143/84 O2 Sat by Pulse 98 98 98 Oximetry 02/04/22 12:35 Temperature Pulse Rate Pulse Rate [ 105 H From Monitor] Respiratory 18 Rate Blood Pressure O2 Sat by Pulse 98 Oximetry - Labs CBC & Chem 7: 02/06/22 04:46 02/06/22 04:46 Labs: Abnormal lab results 02/03/22 02/03/22 02/03/22 Range/Units 07:21 11:34 16:22 [place] % (Auto) (0.0-7.3) % [place] # (Auto) (0.0-0.8) K/mm3 Potassium (3.6-5.0) mmol/L BUN (7-17) mg/dL POC Glucose 153 H 238 H 161 H (70-105) mg/dL 02/03/22 02/04/22 02/04/22 Range/Units 20:12 05:02 05:02 [place] % (Auto) 8.5 H (0.0-7.3) % [place] # (Auto) 0.9 H (0.0-0.8) K/mm3 Potassium 3.4 L D (3.6-5.0) mmol/L BUN 21 H (7-17) mg/dL POC Glucose 194 H (70-105) mg/dL HEART Score - HEART Score Troponin: Troponin T 0.025 ng/mL (0.00-0.029) 02/01/22 21:22
[2022-02-05] MEDS: FUROSEMIDE 40 MG/4 ML INJ IV SCH ×2 (05:37→18:50)
[2022-02-05] MEDS: HEPARIN 5,000 UNIT/1 ML VIAL SUB-Q SCH ×3 (05:37→21:25)
--- NOTE | 2022-02-05 09:03 | Electrocardiograph Report ---
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
[2022-02-05] MEDS: INSULIN REGULAR, HUMAN 100 UNITS/1 ML SUB-Q SCH ×4 (10:43→21:27)
[2022-02-05] MEDS ORDERED: SODIUM CHLORIDE 0.9% 250ML 250 ML ONE (10:51)
[2022-02-05] MEDS: ASPIRIN EC 81 MG TAB PO SCH (10:59)
[2022-02-05] MEDS: carvediloL 3.125 MG TAB PO SCH ×2 (10:59→21:26)
[2022-02-05] MEDS: LISINOPRIL 20 MG TAB PO SCH (11:00)
[2022-02-05] MEDS: AZITHROMYCIN 250 MG TAB PO SCH (11:00)
[2022-02-05] MEDS: VENLAFAXINE XR 75 MG CAP PO SCH (11:01)
[2022-02-05] MEDS: amLODIPine 5 MG TAB PO SCH (11:02)
[2022-02-05] MEDS: INSULIN NPH, HUMAN 100 UNIT/1 ML SUB-Q SCH ×2 (11:09→18:47)
[2022-02-05] MEDS: cefTRIAXone/NS 2 GM/100 ML 2 GM/100 ML BAG IV SCH (11:10)
[2022-02-05] MEDS: METOPROLOL SUCCINATE XL 25 MG TAB PO SCH (11:33)
--- NOTE | 2022-02-05 12:48 | Progress Note ---
Assessment and Plan 66-year-old female with known history of hypertension and diabetes mellitus presenting to the emergency room complaining of shortness of breath and difficulty breathing. Upon arrival in the emergency room patient was quite tachypneic and had increased work of breathing. Oxygen saturation upon arrival was 89% on room air. She was subsequently placed on nonrebreather with significant improvement in oxygen saturation. Work-up in the emergency room showed lactic acid of 3.7, glucose of 542, BNP of 1962. CT angiogram of the chest shows possible pulmonary edema versus infection. No evidence of pulmonary embolism. Chest x-ray shows bilateral pulmonary opacities right greater than left which could represent pneumonia. Patient was admitted for further evaluation and management. 02/02: Continue IV diuresis, IV antibiotics. Continue to adjust insulin regimen for better glycemic control. 2D echo ordered and pending. Continue to follow clinically, ordered for a.m. labs 02/03: 2D echo showed EF 15 to 20%. Continue IV Lasix, consult cardiology monitor ins and outs and daily weight. Continue to adjust insulin doses for better gl ycemic control 02/04: Cardiology following, continue diuresis. Patient symptomatically improving. Continue to monitor blood glucose QA [facility]. Cardiology plan for cardiac cath on Sunday. 02/05: Change long-acting insulin dose to avoid hypoglycemia. Plan for cardiac cath tomorrow. Continue IV diuresis. Monitor clinically. Last dose of antibiotics tomorrow. Assessment and plan: --Bilateral pneumonia Current Visit: Yes Status: Acute Plan to address problem: Patient started on empiric IV antibiotics. We await culture results. --New onset CHF (congestive heart failure) Current Visit: Yes Status: Acute Plan to address problem: Patient placed on diuretics. We will monitor input and output and also monitor daily weight. -- Hypertension Current Visit: Yes Status: Acute Plan to address problem: We will resume routine home medications and monitor vital signs closely. --Diabetes mellitus uncontrolled Current Visit: Yes Status: Acute Plan to address problem: Patient placed on sliding scale insulin. We will monitor Accu-Cheks. --Morbid obesity, recommended balanced diet, adherence with diabetic regimen, increase physical activity -- DVT prophylaxis Current Visit: Yes Status: Acute Plan to address problem: We will place on subcutaneous heparin. -- Full code status Current Visit: Yes Status: Acute Plan to address problem: Patient is full code. Subjective Date of service: 02/05/22 Interval history: Patient seen and examined. Medical records and medication list reviewed. No acute event overnight noted by the RN. Patient complains of difficulty breathing with exertion. Patient is tolerating diet. Discussed plan of care at bedside with patient. Objective - Exam Narrative Exam: General appearance: Present: no acute distress, well-nourished - EENT Eyes: Present: PERRL, EOM intact, scleral icterus ENT: hearing intact, clear oral mucosa, dentition normal - Neck Neck: Present: supple, normal ROM - Respiratory Respiratory effort: normal Respiratory: bilateral: Positive few crackles - Cardiovascular Rhythm: regular Heart Sounds: Present: S1 & S2. Absent: gallop, systolic murmur, diastolic murmur, rub, click - Extremities Extremities: no ischemia, pulses intact, pulses symmetrical, no edema, normal temperature, normal color, Full ROM Peripheral Pulses: within normal limits - Abdominal General gastrointestinal: Present: soft, non-tender, normal bowel sounds. Absent: mass - Integumentary Integumentary: Present: clear, warm, dry, normal turgor. Absent: rash - Musculoskeletal Musculoskeletal: strength equal bilaterally - Psychiatric Psychiatric: appropriate mood/affect, intact judgment & insight, memory intact, cooperative - Neurologic Neurologic: CNII-XII intact, no focal deficits, moves all extremities - Constitutional Vitals: Vital Signs - 12hr 02/05/22 02/05/22 02/05/22 03:52 08:05 09:23 Temperature 98.0 F 98.3 F Pulse Rate 89 93 H Respiratory 14 14 Rate Blood Pressure 109/69 122/83 O2 Sat by Pulse 93 96 94 Oximetry 02/05/22 02/05/22 02/05/22 10:58 10:59 11:00 Temperature 97.3 F L Pulse Rate 94 H 93 H 93 H Respiratory 16 Rate Blood Pressure 116/63 O2 Sat by Pulse 98 Oximetry 02/05/22 02/05/22 11:02 11:33 Temperature Pulse Rate 93 H 93 H Respiratory Rate Blood Pressure 116/73 O2 Sat by Pulse Oximetry - Labs CBC & Chem 7: 02/06/22 04:46 02/06/22 04:46 Labs: Abnormal lab results 02/04/22 02/04/22 02/04/22 Range/Units 08:49 11:42 16:54 POC Glucose 107 H 115 H 135 H (70-105) mg/dL 02/04/22 02/05/22 Range/Units 20:21 08:08 POC Glucose 232 H 143 H (70-105) mg/dL HEART Score - HEART Score Troponin: Troponin T 0.025 ng/mL (0.00-0.029) 02/01/22 21:22
[2022-02-05] MEDS: ACETAMINOPHEN 325 MG TAB PO PRN (13:34)
[2022-02-05] MEDS ORDERED: POTASSIUM CHLORIDE ER 20 MEQ TAB PO SCH (20:00)
--- NOTE | 2022-02-05 20:08 | Progress Note ---
Assessment and Plan - Patient Problems (1) CHF (congestive heart failure) Current Visit: Yes Status: Acute Subjective Date of service: 02/05/22 Interval history: FEELS BETTER...NO CPOR SOB Objective Vital Signs Temp Pulse Resp BP Pulse Ox 02/05/22 17:26 97.4 F L 91 H 16 101/67 98 02/05/22 14:00 98 02/05/22 12:00 92 H 02/05/22 11:33 93 H 02/05/22 11:02 93 H 116/73 02/05/22 11:00 93 H 02/05/22 10:59 93 H 02/05/22 10:58 97.3 F L 94 H 16 116/63 98 02/05/22 09:23 94 02/05/22 08:05 98.3 F 93 H 14 122/83 96 02/05/22 03:52 98.0 F 89 14 109/69 93 02/04/22 23:15 98.5 F 99 H 14 116/77 95 02/04/22 22:43 92 H 02/04/22 22:00 98 02/04/22 20:13 98 - Physical Examination General: No Apparent Distress, Other (OBESE) HEENT: Positive: PERRL Neck: Positive: JVD/HJR Cardiac: Positive: Regular Rhythm, S4 Lungs: Positive: clear to auscultation Neuro: Positive: Grossly Intact Abdomen: Positive: Soft Extremities: Present: normal
[2022-02-05] MEDS ORDERED: SODIUM CHLORIDE 0.9% 500 ML 500 ML IV SCH (21:00)
[2022-02-06 05:27] LABS: BUN/Creatinine Ratio 20; Blood Urea Nitrogen 20 mg/dL (7-17); Calcium 9.2 mg/dL (8.4-10.2); Hemolysis Index 6
[2022-02-06 05:32] LABS: INR 0.91 (0.87-1.13)
[2022-02-06 05:44] LABS: Hematocrit 39.5 % (30.3-42.9); Hemoglobin 13.2 gm/dl (10.1-14.3); Mean Corpuscular HGB Conc 33 % (30-34); Mean Corpuscular Volume 90 fl (79-97); Platelet Count 265 K/mm3 (140-440); Red Blood Count 4.38 M/mm3 (3.65-5.03); Red Cell Distribution Width 13.7 % (13.2-15.2)
--- NOTE | 2022-02-06 07:04 | Consultation ---
DATE OF CONSULTATION: 02/04/2022 HISTORY OF PRESENT ILLNESS: The patient is a 66-year-old female with a history of multiple medical problems including hypertension and diabetes. There is also a prior history of smoking. She presented after a sudden onset of shortness of breath. This began a few hours prior to presentation. She has not had any lung or heart problems in the past. She states that she stopped smoking long ago. She did not give any history of coughing, wheezing, sputum production, fever, or chills. There is no history of ankle swelling, chest discomfort, blood clots, or noncompliance with medications. A cardiology consult was requested because of findings of congestive heart failure. She did not describe any clearcut exertional symptoms, but she is not very active. She did not give any history of sleep disorders or psychiatric disorders. She did not describe any palpitations, dizziness, or syncope. She did not describe any claudication. PAST MEDICAL HISTORY: Smoking, prior smoker. Alcohol, no heavy use. FAMILY HISTORY: Unremarkable. OPERATIONS: None. ALLERGIES: PENICILLIN. MEDICATIONS: See the nurse's list. REVIEW OF SYSTEMS: There is no description of GI or disorders. There is no description of collagen vascular or skin disorders. There is no history of neurologic or endocrine disorders other than diabetes. PHYSICAL EXAMINATION: GENERAL: Well-developed, moderately obese, no acute distress. HEENT: Alert, oriented, cooperative. Mental status normal. EYES, NOSE AND THROAT: Unremarkable. NECK: Reveals jugular venous distention noted. No bruits or carotid upstroke delays. There are no neck masses and the neck is subtle. LUNGS: Diminished breath sounds. No darby rales or rhonchi. HEART: Regular rhythm. Soft S4. No murmurs or rubs. ABDOMEN: Soft, nontender, no masses. EXTREMITIES: No cyanosis, clubbing or edema. Peripheral pulses are intact. NEUROLOGICAL: Symmetrical. SKIN: Clear. IMPRESSION: 1. Evidence for acute systolic heart failure. She has improved. Echocardiography demonstrates severe LV dysfunction with mitral and tricuspid regurgitation. There is also evidence of pulmonary hypertension. 2. Obesity. 3. Diabetes. 4. Hypertension. 5. Possible underlying coronary artery disease with possible inferior myocardial infarction on the current electrocardiogram and the patient has multiple risk factors for coronary artery disease. 6. Prior smoker. Consider underlying lung disease. PLAN: Treat for acute systolic heart failure, discussed CAD risk factor modification. Recommend coronary angiography given the severity of her cardiac status and her multiple risk factors for coronary artery disease and evidence for previous inferior VA on the electrocardiogram. Thank you for this consultation. TID: [id number] RECEIPT: [id number] ELIO/ADRIEL/ZAC
[2022-02-06] MEDS ORDERED: HEPARIN/NS 5000 UNIT/500ML 0 ML IR ONE (09:07)
[2022-02-06] MEDS ORDERED: HEPARIN 10,000 UNITS/10 ML VIAL ONE (09:07)
[2022-02-06] MEDS ORDERED: VERAPAMIL 5 MG/2 ML INJ ONE (09:07)
[2022-02-06] MEDS ORDERED: LIDOCAINE (1%) 10 MG/1 ML VIAL 20 ML MDV ONE (09:08)
[2022-02-06] MEDS ORDERED: NITROGLYCERIN SYRINGE 3 ML ONE ×2 (09:08→12:08)
[2022-02-06] MEDS: ASPIRIN EC 81 MG TAB PO SCH (09:36)
[2022-02-06] MEDS ORDERED: DEXTROSE 50% IN WATER (25GM) 50 ML SYRINGE IV ONE (12:00)
[2022-02-06] MEDS ORDERED: HEPARIN/NS 5000 UNIT/500ML 1,000 ML IR ONE (12:07)
[2022-02-06] MEDS ORDERED: MIDAZOLAM 2 MG/2 ML INJ ONE (12:07)
[2022-02-06] MEDS ORDERED: LIDOCAINE (2%) 20 MG/1 ML VIAL 50 ML MDV INFILTRATI ONE (12:08)
[2022-02-06] MEDS ORDERED: fentaNYL 100 MCG/2 ML INJ ONE (12:08)
--- NOTE | 2022-02-06 12:14 | Electrocardiograph Report ---
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
[2022-02-06] MEDS: HEPARIN 10,000 UNITS/10 ML VIAL ONE ×4 (12:37→13:15)
[2022-02-06] MEDS: VERAPAMIL 5 MG/2 ML INJ ONE ×2 (12:38→12:39)
[2022-02-06] MEDS ORDERED: SODIUM CHLORIDE 0.9% 500 ML 500 ML ONE (12:57)
[2022-02-06] MEDS ORDERED: AZITHROMYCIN 250 MG TAB PO SCH (13:00)
[2022-02-06] MEDS ORDERED: TICAGRELOR 90 MG TAB ONE (13:14)
[2022-02-06] MEDS ORDERED: ALUM-MAG HYDROXIDE-SIMETHICONE 200-200-20MG/5ML ORAL LIQD 30 ML ONE (13:15)
--- NOTE | 2022-02-06 13:37 | Event Note ---
Date: 02/06/22 The patient underwent a cardiac catheterization, we found severe left ventricular dysfunction, a predominantly nonischemic cardiomyopathy. There was also underlying coronary disease with a 75 to 80% stenosis of the mid LAD. We performed ad hoc coronary intervention with a 3.0 x 8 mm drug-eluting stent implanted in the mid LAD, excellent angiographic result, 0 residual stenosis. The patient will be recommended for aggressive guideline directed medical therapy for underlying nonischemic cardiomyopathy, and coronary artery disease to include dual oral antiplatelet therapy.
[2022-02-06] MEDS ORDERED: SODIUM CHLORIDE 0.9% 1000 ML 1,000 ML IV SCH (13:45)
[2022-02-06] MEDS: AZITHROMYCIN 250 MG TAB PO SCH (14:05)
[2022-02-06] MEDS: amLODIPine 5 MG TAB PO SCH (14:07)
[2022-02-06] MEDS: ACETAMINOPHEN 325 MG TAB PO PRN (14:08)
[2022-02-06] MEDS: LISINOPRIL 20 MG TAB PO SCH (14:09)
[2022-02-06] MEDS: INSULIN REGULAR, HUMAN 100 UNITS/1 ML SUB-Q SCH ×4 (14:10→22:34)
[2022-02-06] MEDS: HEPARIN 5,000 UNIT/1 ML VIAL SUB-Q SCH ×2 (14:10→22:34)
[2022-02-06] MEDS: INSULIN NPH, HUMAN 100 UNIT/1 ML SUB-Q SCH ×2 (14:12→19:42)
--- NOTE | 2022-02-06 14:20 | Cardiac Catherization Report ---
DATE OF SERVICE: 02/06/2022 CARDIAC CATHETERIZATION AND CORONARY ANGIOPLASTY REASON FOR PROCEDURE: The patient is a 66-year-old woman who presented to the hospital with symptoms of congestive heart failure. An echocardiogram showed severe dilated cardiomyopathy with ejection-fraction of 15-20%, apparently a new heart failure diagnosis. She was recommended for cardiac catheterization for assessment of possible coronary artery disease as etiology of the heart failure. PROCEDURES: 1. Left heart catheterization. 2. Selective left and right coronary angiography. 3. Left ventricular angiography. 4. Sedation time start 1232, end 1315. 5. Coronary angioplasty and stenting of the mid-LAD. DESCRIPTION OF PROCEDURE: The patient was prepped and draped in a sterile fashion after informed consent. The right radial artery was entered using a Seldinger technique followed by placement of a 6-Chinese hydrophilic sheath. Routine radial cocktail was administered via the sheath. Selective left and right coronary angiography was performed using a #3.5 left Ioana and a #4 right Ioana. The right Ioana was used for left ventricular angiography using a hand injection. The angiograms were reviewed. CORONARY ANGIOGRAPHY: Left main coronary artery was free of significant disease. The left anterior descending artery contained a focal, 75-80% of its midsegment. A large ramus intermedius artery was notable for a long 50-60% stenosis of the proximal to midsegment of its superior subbranch. The circumflex artery and obtuse marginal branches were free of significant disease. The right coronary artery was dominant and similarly free of significant disease. Left ventricle was severely dilated, with severe left ventricular systolic dysfunction and diffuse hypokinesis. The severity of the left ventricular dysfunction is disproportionate to the underlying coronary artery disease. CORONARY ANGIOPLASTY: We proceeded with ad hoc coronary intervention to the mid-LAD. Selected a #3.0 XB guiding catheter and advanced to the left coronary ostium. A 0.014 inch Rotary Engraver 50 guidewire was directed into the LAD across the lesional segment. In a primary stenting maneuver, we deployed a 3.0 x 8 mm drug-eluting stent, across the lesion and inflated to optimal pressures. Following stenting, there was an excellent angiographic result, zero residual stenosis and SPIKE 3 flow was maintained down the vessel. The patient tolerated the procedure well and there were no complications. The catheters and the wires were removed, sheath removed and hemostasis achieved using a TR band. The patient was returned to the postprocedure unit in a stable condition. CONCLUSION: 1. Coronary artery disease with [id number] focal stenosis of the mid-LAD. 2. Successful ad hoc angioplasty and stenting of the mid-LAD with a 3.5 x 8 mm drug-eluting stent. 3. Small vessel disease in other coronary segments will be recommended for medical management. 4. Underlying, predominantly nonischemic cardiomyopathy, severe left ventricular systolic dysfunction will be managed on guideline-directed medical therapy. TID: [id number] RECEIPT: [id number] CA/ARV
[2022-02-06] MEDS: cefTRIAXone/NS 2 GM/100 ML 2 GM/100 ML BAG IV SCH (14:24)
[2022-02-06] MEDS: carvediloL 3.125 MG TAB PO SCH ×2 (14:26→22:33)
[2022-02-06] MEDS: VENLAFAXINE XR 75 MG CAP PO SCH (14:27)
[2022-02-06] MEDS: FUROSEMIDE 40 MG/4 ML INJ IV SCH (16:14)
[2022-02-06] MEDS: SPIRONOLACTONE 25 MG TAB PO SCH (16:19)
--- NOTE | 2022-02-06 16:41 | Progress Note ---
Assessment and Plan 66-year-old female with known history of hypertension and diabetes mellitus presenting to the emergency room complaining of shortness of breath and difficulty breathing. Upon arrival in the emergency room patient was quite tachypneic and had increased work of breathing. Oxygen saturation upon arrival was 89% on room air. She was subsequently placed on nonrebreather with significant improvement in oxygen saturation. Work-up in the emergency room showed lactic acid of 3.7, glucose of 542, BNP of 1962. CT angiogram of the chest shows possible pulmonary edema versus infection. No evidence of pulmonary embolism. Chest x-ray shows bilateral pulmonary opacities right greater than left which could represent pneumonia. Patient was admitted for further evaluation and management. 02/02: Continue IV diuresis, IV antibiotics. Continue to adjust insulin regimen for better glycemic control. 2D echo ordered and pending. Continue to follow clinically, ordered for a.m. labs 02/03: 2D echo showed EF 15 to 20%. Continue IV Lasix, consult cardiology monitor ins and outs and daily weight. Continue to adjust insulin doses for better gl ycemic control 02/04: Cardiology following, continue diuresis. Patient symptomatically improving. Continue to monitor blood glucose QA [facility]. Cardiology plan for cardiac cath on Sunday. 02/05: Change long-acting insulin dose to avoid hypoglycemia. Plan for cardiac cath tomorrow. Continue IV diuresis. Monitor clinically. Last dose of antibiotics tomorrow. 02/06; The patient underwent a cardiac catheterization, found severe left ventricular dysfunction, a predominantly nonischemic cardiomyopathy. There was also underlying coronary disease with a 75 to 80% stenosis of the mid LAD s/pcoronary intervention with a 3.0 x 8 mm drug-eluting stent implanted in the mid LAD. Cardiology recommended for aggressive guideline directed medical therapy for underlying nonischemic cardiomyopathy, and coronary artery disease to include dual oral antiplatelet therapy. Consulted PT. If clinically stable and cleared by cardiology possible discharge tomorrow. Last dose of antibiotics today. Assessment and plan: --Bilateral pneumonia Current Visit: Yes Status: Acute Plan to address problem: Patient started on empiric IV antibiotics. Completed today We await culture results. --Coronary artery disease status post PCI to mid LAD Continue guideline directed medical therapy coronary artery disease with dual oral antiplatelet therapy and statin --New onset CHF (congestive heart failure) Current Visit: Yes Status: Acute Plan to address problem: Patient placed on diuretics. We will monitor input and output and also monitor daily weight. 2D echo showed EF 15 to 20%, cardiology following -- Hypertension Current Visit: Yes Status: Acute Plan to address problem: We will resume routine home medications and monitor vital signs closely. --Diabetes mellitus uncontrolled Current Visit: Yes Status: Acute Plan to address problem: Patient placed on sliding scale insulin. We will monitor Accu-Cheks. --Morbid obesity, recommended balanced diet, adherence with diabetic regimen, increase physical activity -- DVT prophylaxis Current Visit: Yes Status: Acute Plan to address problem: We will place on subcutaneous heparin. -- Full code status Current Visit: Yes Status: Acute Plan to address problem: Patient is full code. Subjective Date of service: 02/06/22 Interval history: Patient seen and examined. Medical records and medication list reviewed. No acute event overnight noted by the RN. status post cardiac cath today with PCI Tolerated procedure well Objective - Exam Narrative Exam: General appearance: Present: no acute distress, well-nourished - EENT Eyes: Present: PERRL, EOM intact, scleral icterus ENT: hearing intact, clear oral mucosa, dentition normal - Neck Neck: Present: supple, normal ROM - Respiratory Respiratory effort: normal Respiratory: bilateral: Positive few crackles - Cardiovascular Rhythm: regular Heart Sounds: Present: S1 & S2. Absent: gallop, systolic murmur, diastolic murmur, rub, click - Extremities Extremities: no ischemia, pulses intact, pulses symmetrical, no edema, normal temperature, normal color, Full ROM Peripheral Pulses: within normal limits - Abdominal General gastrointestinal: Present: soft, non-tender, normal bowel sounds. Absent: mass - Integumentary Integumentary: Present: clear, warm, dry, normal turgor. Absent: rash - Musculoskeletal Musculoskeletal: strength equal bilaterally - Psychiatric Psychiatric: appropriate mood/affect, intact judgment & insight, memory intact, cooperative - Neurologic Neurologic: CNII-XII intact, no focal deficits, moves all extremities - Constitutional Vitals: Vital Signs - 12hr 02/06/22 02/06/22 02/06/22 07:32 13:47 14:00 Temperature 98.1 F 97.2 F L Pulse Rate 88 89 Respiratory 20 20 20 Rate Blood Pressure 107/71 120/79 O2 Sat by Pulse 98 93 98 Oximetry 02/06/22 02/06/22 02/06/22 14:07 14:09 14:26 Temperature Pulse Rate 78 87 87 Respiratory Rate Blood Pressure O2 Sat by Pulse Oximetry 02/06/22 16:19 Temperature Pulse Rate 87 Respiratory Rate Blood Pressure O2 Sat by Pulse Oximetry - Labs CBC & Chem 7: 02/06/22 04:46 02/06/22 04:46 Labs: Abnormal lab results 02/05/22 02/05/22 02/06/22 Range/Units 17:24 20:38 04:46 BUN 20 H (7-17) mg/dL POC Glucose 124 H 154 H (70-105) mg/dL HEART Score - HEART Score Troponin: Troponin T 0.025 ng/mL (0.00-0.029) 02/01/22 21:22
[2022-02-06] MEDS: TICAGRELOR 90 MG TAB PO SCH (22:32)
[2022-02-07] MEDS: HEPARIN 5,000 UNIT/1 ML VIAL SUB-Q SCH (05:17)
[2022-02-07 06:35] LABS: Basophils # (Auto) 0.1 K/mm3 (0.0-0.1); Basophils % (Auto) 0.9 % (0.0-1.8); Eosinophils # (Auto) 0.1 K/mm3 (0.0-0.4); Eosinophils % (Auto) 1.1 % (0.0-4.3); Hematocrit 38.4 % (30.3-42.9); Hemoglobin 12.6 gm/dl (10.1-14.3); Lymphocytes # (Auto) 1.1 K/mm3 (1.2-5.4); Lymphocytes % (Auto) 11.8 % (13.4-35.0); Mean Corpuscular HGB Conc 33 % (30-34); Mean Corpuscular Volume 92 fl (79-97); Monocytes # (Auto) 0.8 K/mm3 (0.0-0.8); Monocytes % (Auto) 8.5 % (0.0-7.3); Platelet Count 251 K/mm3 (140-440)
[2022-02-07 06:50] LABS: BUN/Creatinine Ratio 16; Blood Urea Nitrogen 16 mg/dL (7-17); Calcium 8.9 mg/dL (8.4-10.2); Hemolysis Index 6
[2022-02-07 07:09] LABS: Chol/HDL Ratio 3.92 %; HDL Cholesterol 66 mg/dL (40-59); LDL Cholesterol,Direct 169 mg/dL (50-130)
[2022-02-07] MEDS: INSULIN REGULAR, HUMAN 100 UNITS/1 ML SUB-Q SCH ×2 (08:22→13:13)
[2022-02-07] MEDS: INSULIN NPH, HUMAN 100 UNIT/1 ML SUB-Q SCH (08:22)
--- NOTE | 2022-02-07 08:59 | XRay Report ---
CHEST 1 VIEW INDICATION: post pci. COMPARISON: 02/01/2022 FINDINGS: SUPPORT DEVICES: None. HEART: Within normal limits. LUNGS/PLEURA: No acute air space or interstitial disease. ADDITIONAL FINDINGS: None. IMPRESSION: 1. No acute findings. Signer Name: Deion Millard MD Signed: 02/07/2022 8:55 AM Workstation Name: [id number]
[2022-02-07] MEDS: ASPIRIN EC 81 MG TAB PO SCH (09:40)
[2022-02-07] MEDS: TICAGRELOR 90 MG TAB PO SCH (09:41)
[2022-02-07] MEDS: VENLAFAXINE XR 75 MG CAP PO SCH (09:41)
[2022-02-07] MEDS: SPIRONOLACTONE 25 MG TAB PO SCH (09:41)
[2022-02-07] MEDS: amLODIPine 5 MG TAB PO SCH (09:41)
[2022-02-07] MEDS: FUROSEMIDE 40 MG/4 ML INJ IV SCH ×2 (09:41→09:47)
[2022-02-07] MEDS: carvediloL 3.125 MG TAB PO SCH (09:41)
[2022-02-07] MEDS: LISINOPRIL 20 MG TAB PO SCH (09:41)
--- NOTE | 2022-02-07 10:56 | Progress Note ---
Assessment and Plan - Patient Problems (1) Coronary artery disease Current Visit: Yes Status: Acute Plan to address problem: Patient underwent coronary stenting of focal mid LAD stenosis, looks and feels better. Continue guideline directed medical therapy including dual oral antiplatelet therapy with baby aspirin and Brilinta. (2) CHF (congestive heart failure) Current Visit: Yes Status: Acute Plan to address problem: Patient's initial presentation was with shortness of breath, abnormal chest x- ray with a predominantly right-sided pulmonary infiltrate. His echocardiogram showed severe left ventricular systolic dysfunction with ejection fraction 15 to 20%. The severity of the cardiomyopathy is disproportionate to the degree of coronary artery disease, consistent with a predominantly nonischemic cardiomyopathy. Follow-up chest x-ray today shows complete clearing of both lung macias, interstitial edema is resolved. Continue guideline directed medical therapy including diuretics, afterload agents, beta-blockers and spironolactone. Stable for cardiac discharge on medical therapy. Subjective Date of service: 02/07/22 Principal diagnosis: Congestive heart failure Interval history: Patient is comfortable, no cardiac complaints, looks and feels better. Right radial cath site is well-healed, normal radial pulses. Objective Vital Signs Temp Pulse Resp BP Pulse Ox 02/07/22 07:37 98.1 F 94 H 18 157/99 96 02/07/22 04:34 97.7 F 91 H 18 122/71 98 02/07/22 02:00 98 02/07/22 00:06 98.5 F 99 H 18 146/83 93 02/06/22 22:33 130/82 02/06/22 21:13 92 02/06/22 20:22 97.5 F L 102 H 18 130/84 99 02/06/22 18:32 102 H 137/82 98 02/06/22 16:19 87 02/06/22 16:12 97.9 F 92 H 129/83 97 02/06/22 16:08 98.2 F 92 H 20 131/72 97 02/06/22 14:26 87 02/06/22 14:09 87 02/06/22 14:07 78 02/06/22 14:00 20 98 02/06/22 13:47 97.2 F L 89 20 120/79 93 - Physical Examination General: No Apparent Distress, Other (OBESE) HEENT: Positive: PERRL Neck: Positive: JVD/HJR Cardiac: Positive: Reg Rate and Rhythm Lungs: Positive: clear to auscultation Neuro: Positive: Grossly Intact Abdomen: Positive: Soft Skin: Positive: Clear Extremities: Absent: edema - Labs and Meds Lipids 02/07/22 Range/Units 06:10 Triglycerides 130 (2-149) mg/dL Cholesterol 259 H (50-199) mg/dL HDL Cholesterol 66 H (40-59) mg/dL Cholesterol/HDL Ratio 3.92 % CBC 02/07/22 Range/Units 06:10 WBC 9.0 (4.5-11.0) K/mm3 RBC 4.20 (3.65-5.03) M/mm3 Hgb 12.6 (10.1-14.3) gm/dl Hct 38.4 (30.3-42.9) % Plt Count 251 (140-440) K/mm3 Lymph # (Auto) 1.1 L (1.2-5.4) K/mm3 [place] # (Auto) 0.8 (0.0-0.8) K/mm3 Eos # (Auto) 0.1 (0.0-0.4) K/mm3 Baso # (Auto) 0.1 (0.0-0.1) K/mm3 Comprehensive Metabolic Panel 02/07/22 Range/Units 06:10 Sodium 137 (137-145) mmol/L Potassium 3.8 (3.6-5.0) mmol/L Chloride 98.4 (98-107) mmol/L Carbon Dioxide 26 (22-30) mmol/L BUN 16 (7-17) mg/dL Creatinine 1.0 (0.6-1.2) mg/dL Glucose 148 H (65-100) mg/dL Calcium 8.9 (8.4-10.2) mg/dL
--- NOTE | 2022-02-07 11:52 | Electrocardiograph Report ---
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
--- NOTE | 2022-02-07 12:00 | Electrocardiograph Report ---
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
[2022-02-07 12:21] VITALS: BP 139/84
--- NOTE | 2022-02-07 15:43 | Discharge Summary ---
Providers - Providers Date of Admission: 02/02/22 01:43 Date of discharge: 02/07/22 Attending physician: STEPHANI QUIROGA MD 02/01/22 23:41 Consult to Dietitian/Nutrition [CONS] Routine Physician Instructions: Reason For Exam: Reason for Consult: Diet education 02/03/22 16:35 Consult to Physician [CONS] Routine Comment: Consulting Provider: MARTIN CONCEPCION Physician Instructions: Reason For Exam: new onset CHF 02/06/22 Consult to Cardiac Rehabilitation [CONS] Routine Reason For Exam: post pci 02/06/22 09:31 Physical Therapy Evaluation and Treat [CONS] Routine Comment: Reason For Exam: Eval and Treat Primary care physician: MASONRY CONTRACTOR ADMINISTRATOR Hospitalization Reason for admission: New onset acute systolic heart failure Condition: Good Pertinent studies: Reviewed. Procedures: Left heart catheterization Hospital course: 66-year-old female with known history of hypertension and diabetes mellitus presenting to the emergency room today complaining of shortness of breath and difficulty breathing. Symptoms were said to have started a few hours prior to reporting to the emergency room. She denies any fever or chills, no chest pain, no nausea vomiting and no abdominal pain. Patient denies any sick contacts and no recent travel. Denies any contact with anyone with COVID-19. Patient has just had 2 doses of the COVID-19 vaccine. She awaits the booster dose. Upon arrival in the emergency room patient was quite tachypneic and had increased work of breathing. Oxygen saturation upon arrival was 89% on room air. She was subsequently placed on nonrebreather with significant improvement in oxygen saturation. Work-up in the emergency room today, significant findings on the labs were lactic acid of 3.7, glucose of 542, BNP of 1962. CT angiogram of the chest shows possible pulmonary edema versus infection. No evidence of pulmonary embolism. Chest x-ray shows bilateral pulmonary opacities right greater than left which could represent pneumonia. The patient underwent IV diuresis, and cardiology was consulted. TTE revealed an EF of 15-20%. Patient underwent left heart catheterization on 02/05/2022 revealing severe LV dysfunction (predominantly nonischemic cardiomyopathy) along with underlying coronary disease with 75-80% stenosis of the mid LAD status post coronary intervention with a drug-eluting stent. Cardiology recommended aggressive medical management and dual oral antiplatelet therapy. Patient will follow up with cardiology in outpatient setting. Patient tolerated the procedure well. Patient is medically clear for discharge. 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, obesity Time spent for discharge: 45 min Core Measure Documentation - Palliative Care Palliative Care/ Comfort Measures: Not Applicable - Core Measures Any of the following diagnoses?: history only - Heart Failure Discharge Requirements FROY/ARB for LVSD if EF <40%: Yes Beta abimael at discharge: Yes Exam - Constitutional Vitals: Temp Pulse Resp BP Pulse Ox 97.9 F 87 18 139/84 99 02/07/22 11:25 02/07/22 12:41 02/07/22 12:41 02/07/22 11:25 02/07/22 12:41 General appearance: Present: no acute distress, well-nourished, obese - EENT Eyes: Present: PERRL, EOM intact ENT: hearing intact, clear oral mucosa, dentition normal - Neck Neck: Present: supple, normal ROM - Respiratory Respiratory effort: normal Respiratory: bilateral: CTA - Cardiovascular Rhythm: regular Heart Sounds: Present: S1 & S2 - Extremities Extremities: no ischemia, pulses intact, pulses symmetrical, No edema, normal temperature, normal color, Full ROM Peripheral Pulses: within normal limits - Abdominal General gastrointestinal: Present: soft, non-tender, non-distended, normal bowel sounds Female genitourinary: Present: deferred - Rectal Rectal Exam: deferred - Integumentary Integumentary: Present: clear, warm, dry - Musculoskeletal Musculoskeletal: strength equal bilaterally - Psychiatric Psychiatric: appropriate mood/affect, intact judgment & insight, memory intact, cooperative - Neurologic Neurologic: CNII-XII intact, moves all extremities - Allied Health Allied health notes reviewed: nursing Plan Care Plan Goals: Patient is medically cleared for discharge. Follow up with: MARTIN CONCEPCION MD [Staff Physician] - 7 Days PRIMARY CAREMD [Primary Care Provider] - 3-5 Days Prescriptions: AtorvaSTATin [Lipitor] 80 mg PO QHS #60 tablet Spironolactone [Aldactone] 25 mg PO QDAY #30 tablet amLODIPine 5 mg PO DAILY #30 tab carvediloL [Coreg] 3.125 mg PO BID #60 tablet Losartan [Cozaar] 50 mg PO QDAY #30 tablet glipiZIDE XL [Glucotrol Xl] 2.5 mg PO 0800 #30 tablet Aspirin EC [Halfprin EC] 81 mg PO QDAY #30 tablet Furosemide [Lasix TAB] 40 mg PO QDAY #30 tablet Clopidogrel [Plavix] 75 mg PO QDAY #30 tablet
== END 2022-02-07 13:17 | disposition home or self-care (01) | DRG 246 ==
LOC: ED 20:29 → 4A 02-02 01:43
PROVIDERS: ADMIT Internal Medicine Geriatric Medicine; ATTEND Student in an Organized Health Care Education/Training Program
PROC: 4A033R1 Measurement of Arterial Saturation, Peripheral, Percutaneous Approach (ICD-10-PCS; 2022-02-01)
PROC: 027034Z Dilation of Coronary Artery, One Artery with Drug-eluting Intraluminal Device, Percutaneous Approach (ICD-10-PCS; principal; 2022-02-06)
PROC: 4A023N7 Measurement of Cardiac Sampling and Pressure, Left Heart, Percutaneous Approach (ICD-10-PCS; 2022-02-06)
PROC: B2111ZZ Fluoroscopy of Multiple Coronary Arteries using Low Osmolar Contrast (ICD-10-PCS; 2022-02-06)
PROC: B2151ZZ Fluoroscopy of Left Heart using Low Osmolar Contrast (ICD-10-PCS; 2022-02-06)
DX: I11.0 Hypertensive heart disease with heart failure (principal); I50.21 Acute systolic (congestive) heart failure; J18.9 Pneumonia, unspecified organism; E66.01 Morbid (severe) obesity due to excess calories; E11.65 Type 2 diabetes mellitus with hyperglycemia; I42.8 Other cardiomyopathies; I25.10 Atherosclerotic heart disease of native coronary artery without angina pectoris; Z68.33 Body mass index [BMI] 33.0-33.9, adult; Z88.0 Allergy status to penicillin
CPT/HCPCS: 36415; 36600; 71045; 71275; 80048; 80053; 80061; 82140; 82550; 82553; 82803; 82962; 83036; 83690; 83880; 84145; 84484; 85007; 85025; 85027; 85610; 92928; 93005; 93306; 93458; 94644; 94760; 96374; G0378; J1815; J2354; J3490; Q9967; C1769; C1874; C1887; C1894; C8929; C9600; J0696; J1644; J1940; J2250; J3010; J7040; J7050